=== PATIENT | female | born 1975 | race Caucasian/White ===

== ENCOUNTER 2017-12-28 23:35 | Emergency (ER) | payer OTHER ==
[~2017-12-28] VITALS: Ht 165.1 cm; Wt 72.6 kg
[~2017-12-28 23:35] MED LIST: ATIVAN1 MG PO; CEPHALEXIN 500500 M3 PO; CLARITIN5 MG; HYDROCODONE-AP1 EAC6 PO; IBUPROFEN 200200 M1 PO; NAPROSYN; NASONEX17 GM; NORCO 5-325 TA1 EACH PO; PREVACID30 MG PO; SINGULAIR; VENTOLIN17 GM INH
[2017-12-29] MEDS ORDERED: CLEOCIN HCL150 MG PO (01:54)
[2017-12-29] MEDS ORDERED: HYDROCODONE-AP1 EAC6 PO (01:54)
[2017-12-29 02:14] VITALS: BP 139/90
== END 2017-12-29 02:10 | disposition home or self-care (01) ==
LOC: M.ERS 23:35
DX: K12.2 Cellulitis and abscess of mouth (principal); J45.909 Unspecified asthma, uncomplicated; F17.200 Nicotine dependence, unspecified, uncomplicated; Z85.41 Personal history of malignant neoplasm of cervix uteri

== ENCOUNTER 2018-05-04 23:48 | Emergency (ER) | payer OTHER ==
[~2018-05-04] VITALS: Ht 165.1 cm; Wt 77.1 kg
[~2018-05-04 23:48] MED LIST changes: +CLEOCIN HCL150 MG PO
[2018-05-05] MEDS ORDERED: PROAIR HFA8.5 GM INH (00:32)
[2018-05-05] MEDS ORDERED: PREDNISONE 20 M20 M1 PO (00:33)
[2018-05-05 01:21] LABS: INFLUENZA A ANTIGEN None Detected (None Detect); INFLUENZA B ANTIGEN None Detected (None Detect)
[2018-05-05 01:30] VITALS: BP 137/83
== END 2018-05-05 01:00 | disposition home or self-care (01) ==
LOC: M.ERS 23:48
PROVIDERS: Emergency Medicine
DX: J06.9 Acute upper respiratory infection, unspecified (principal); J45.909 Unspecified asthma, uncomplicated; Z85.41 Personal history of malignant neoplasm of cervix uteri; F17.210 Nicotine dependence, cigarettes, uncomplicated